=== PATIENT | female | born 1940 | race Caucasian/White ===

== ENCOUNTER 2018-01-18 09:34 | Emergency (ER) | payer OTHER, MEDICAID ==
[~2018-01-18] VITALS: Ht 152.4 cm; Wt 63.1 kg
[~2018-01-18 09:34] MED LIST: ALPR1TAB2 PO; COZ50 PO; METF500T PO; METO50TE2 PO; ROSU5TAB PO
[2018-01-18 09:35] VITALS: BP 145/79
[2018-01-18] MEDS ORDERED: KETOROLAC 30 MG/ML VIAL IM ONE (10:05)
[2018-01-18] MEDS ORDERED: DEXAMETHASONE 10 MG/ML VIAL IM ONE (10:05)
[2018-01-18 10:47] LABS: BILIRUBIN,URINE NEGATIVE (NEGATIVE); BLOOD, URINE NEGATIVE (NEGATIVE); COLOR,URINE YELLOW (YELLOW); LEUKOCYTE ESTERASE ,URINE NEGATIVE (NEGATIVE); NITRITE, URINE NEGATIVE (NEGATIVE); UGLUCOSE NEGATIVE (NEGATIVE)
[2018-01-18 10:50] VITALS: BP 145/79
[2018-01-18 10:51] LABS: APPEARANCE,URINE SLIGHTLY HAZY (CLEAR)
[2018-01-18 10:52] LABS: HYALINE CASTS, URINE 0-10 /LPF (None Seen); RBC,URINE 0-5 (RARE) /HPF (0-5); WBC,URINE 0-5 (RARE) /HPF (0-5)
== END 2018-01-18 10:50 | disposition home or self-care (01) ==
LOC: MED 09:34
DX: M51.16 Intervertebral disc disorders with radiculopathy, lumbar region (principal); E11.9 Type 2 diabetes mellitus without complications; I10 Essential (primary) hypertension; Z88.5 Allergy status to narcotic agent; Z79.899 Other long term (current) drug therapy; Z79.84 Long term (current) use of oral hypoglycemic drugs
CPT/HCPCS: 72100; 81001; 96372; 99285; J1100; J1885

== ENCOUNTER 2018-02-05 06:52 | Emergency (ER) | payer OTHER, MEDICAID ==
[~2018-02-05] VITALS: Ht 152.4 cm; Wt 63.0 kg
[2018-02-05 07:07] VITALS: BP 126/70
[2018-02-05] MEDS ORDERED: KETOROLAC 60 MG/2 ML VIAL IM ONE (08:15)
[2018-02-05] MEDS ORDERED: DEXAMETHASONE 4 MG/ML VIAL IM ONE (08:15)
[2018-02-05 08:51] VITALS: BP 146/73
== END 2018-02-05 08:51 | disposition home or self-care (01) ==
LOC: MED 06:52
DX: S86.812A Strain of other muscle(s) and tendon(s) at lower leg level, left leg, initial encounter (principal); G89.29 Other chronic pain; M54.5 Low back pain; E11.9 Type 2 diabetes mellitus without complications; E07.9 Disorder of thyroid, unspecified; E78.5 Hyperlipidemia, unspecified; Z88.5 Allergy status to narcotic agent; Z79.84 Long term (current) use of oral hypoglycemic drugs; Z79.899 Other long term (current) drug therapy; W19.XXXA Unspecified fall, initial encounter; Y93.89 Activity, other specified; Y92.89 Other specified places as the place of occurrence of the external cause; Y99.8 Other external cause status
CPT/HCPCS: 72100; 73562; 96372; 99284; J1100; J1885; Q0092

== ENCOUNTER 2020-01-26 14:49 | Emergency (ER) | payer OTHER, MEDICAID ==
[~2020-01-26] VITALS: Ht 157.5 cm; Wt 63.5 kg
[~2020-01-26 14:49] MED LIST changes: -COZ50 PO; +LOSA50TA57 PO
[2020-01-26 14:54] VITALS: BP 167/73
[2020-01-26 16:39] VITALS: BP 167/73
== END 2020-01-26 16:40 | disposition home or self-care (01) ==
LOC: MED 14:49
DX: S46.911A Strain of unspecified muscle, fascia and tendon at shoulder and upper arm level, right arm, initial encounter (principal); R51.9 Headache, unspecified; E11.9 Type 2 diabetes mellitus without complications; E07.9 Disorder of thyroid, unspecified; I10 Essential (primary) hypertension; Z88.5 Allergy status to narcotic agent; Z79.899 Other long term (current) drug therapy; X58.XXXA Exposure to other specified factors, initial encounter; Y93.89 Activity, other specified; Y92.89 Other specified places as the place of occurrence of the external cause; Y99.8 Other external cause status
CPT/HCPCS: 70450; 82948; 99284

== ENCOUNTER 2020-12-10 14:36 | Emergency (ER) | payer OTHER, MEDICAID ==
[~2020-12-10] VITALS: Ht 157.5 cm; Wt 59.0 kg
[2020-12-10 14:39] VITALS: BP 205/97
--- NOTE | 2020-12-10 14:43 | NUR ---
BIBA TO BED 4.
--- NOTE | 2020-12-10 14:50 | NUR ---
80 Y/O FEMALE BIBA FROM [facility] C/O GENERALIZED PAIN 8/10 DESCRIBES ACHING S/P FALL WHILE SHOPPING. PER EMS PT HIT HEAD, DENIES LOC, DENIES N/V, DENIES FEVER/CHILLS. BLOOD SUGAR 215. PT IS NOT ON BLOOD THINNERS. PMH:HTN, DM, HYPOTHYROID ALLERGIES: CODEINE
--- NOTE | 2020-12-10 14:51 | NUR ---
PER DR. KAISER PT TO BE PLACED IN C-COLLAR.
--- NOTE | 2020-12-10 14:53 | NUR ---
[facility]
[2020-12-10] MEDS ORDERED: ACETAMINOPHEN 325 MG TAB PO ONE (15:00)
--- NOTE | 2020-12-10 15:19 | NUR ---
PT TAKEN TO ER BED 4 [facility].
--- NOTE | 2020-12-10 16:31 | NUR ---
PER DR. KAISER, PT CLEARED FROM C-COLLAR.
--- NOTE | 2020-12-10 16:37 | NUR ---
PT ASSISTED TO BEDPAN, 50ML OF CLEAR YELLOW URINE SEDIMENT NOTED.
[2020-12-10] MEDS ORDERED: ACET-10509 PO (16:40)
--- NOTE | 2020-12-10 16:45 | NUR ---
PT RESTING, VISIBLE EQUAL RISE AND FALL OF CHEST, VSS, WILL CONTINUE TO MONITOR.
[2020-12-10 18:08] VITALS: BP 154/78
--- NOTE | 2020-12-10 18:08 | NUR ---
Patient discharged with v/s stable. Written and verbal after care instructions given and explained. Patient verbalized understanding. Ambulatory with steady gait. All questions addressed prior to discharge. Advised to follow up with PMD.
== END 2020-12-10 18:08 | disposition home or self-care (01) ==
LOC: MED 14:36
DX: S09.90XA Unspecified injury of head, initial encounter (principal); M54.2 Cervicalgia; M25.551 Pain in right hip; M25.552 Pain in left hip; M25.572 Pain in left ankle and joints of left foot; M25.561 Pain in right knee; E11.9 Type 2 diabetes mellitus without complications; I10 Essential (primary) hypertension; E07.9 Disorder of thyroid, unspecified; Z90.49 Acquired absence of other specified parts of digestive tract; Z88.5 Allergy status to narcotic agent; Z79.899 Other long term (current) drug therapy; Z79.84 Long term (current) use of oral hypoglycemic drugs; W51.XXXA Accidental striking against or bumped into by another person, initial encounter; Y93.89 Activity, other specified; Y92.89 Other specified places as the place of occurrence of the external cause; Y99.8 Other external cause status
CPT/HCPCS: 70450; 72072; 72100; 72125; 73030; 73562; 73610; 99285

== ENCOUNTER 2021-05-27 18:52 | Emergency (ER) | payer OTHER, MEDICAID ==
[~2021-05-27] VITALS: Ht 154.9 cm; Wt 57.6 kg
[~2021-05-27 18:52] MED LIST changes: +ACET-10509 PO
[2021-05-27 19:07] VITALS: BP 180/92
--- NOTE | 2021-05-27 19:32 | NUR ---
Dr. Rees examining patient.
[2021-05-27] MEDS ORDERED: MORPHINE SULFATE 4 MG/ML SYR IVP ONE (19:35)
--- NOTE | 2021-05-27 19:35 | NUR ---
80 Y/O FEMALE BIB FAMILY C/O BODY PAIN 10/10 S/P FALL [id number] AGO. +HEAD INJURY, DENIES LOC. DENIES N/V. DENIES FEVER/CHILLS. APPROX 1 CMLACERATION NOTED RIGHT EYEBROW WITH HEMATOMA PMH: DM, HTN, HLD, HYPOTHYROIDISM ALLERGIES: CODEINE
--- NOTE | 2021-05-27 19:55 | NUR ---
TO CT VIA [facility]
--- NOTE | 2021-05-27 20:31 | NUR ---
PT RETURN FROM RADIOLOGY
--- NOTE | 2021-05-27 20:35 | NUR ---
ASSISTED ONTO BEDPAN
--- NOTE | 2021-05-27 21:12 | NUR ---
VOIDED LARGE AMOUNT CLEAR URINE ON BEDPAN
--- NOTE | 2021-05-27 22:00 | NUR ---
PTS DAUGHTER : SUSAN TREVIÑO : [phone]
[2021-05-27] MEDS ORDERED: HYDR-5080 PO ×2 (23:27→23:28)
[2021-05-27 23:54] VITALS: BP 180/92
== END 2021-05-27 23:45 | disposition home or self-care (01) ==
LOC: MED 18:52
DX: S42.291A Other displaced fracture of upper end of right humerus, initial encounter for closed fracture (principal); S00.83XA Contusion of other part of head, initial encounter; H92.01 Otalgia, right ear; W18.39XA Other fall on same level, initial encounter; Y93.89 Activity, other specified; Y92.89 Other specified places as the place of occurrence of the external cause; Y99.8 Other external cause status
CPT/HCPCS: 70450; 70486; 71045; 72125; 73030; 73060; 73080; 73562; 90471; 90715; 96374; 99285; J2270

== ENCOUNTER 2021-11-07 09:08 | Emergency (ER) | payer OTHER, MEDICAID ==
[~2021-11-07] VITALS: Ht 149.9 cm; Wt 50.6 kg
[~2021-11-07 09:08] MED LIST changes: +HYDR-5080 PO; +METF-346 PO; -METF500T PO
[2021-11-07 09:23] VITALS: BP 166/71
--- NOTE | 2021-11-07 09:30 | NUR ---
PT AMB TO BED 9.
--- NOTE | 2021-11-07 09:45 | NUR ---
DR MANCINI AT BEDSIDE FOR EVALUATION
--- NOTE | 2021-11-07 09:50 | NUR ---
81 Y/O FEMALE C/O LEFT EAR DISCOMFORT X LAST NIGHT. STATES SHE PLACED EAR PLUG IN EAR WHILE SHOWERING THEN COULD NOT FIND, WORRIED IT MAY BE STUCK IN EAR. DENIES DIZZINESS, HEADACHE, BLURRED VISION, FEVER, CHILLS. NO VISIBLE SIGNS OF OBJECT IN EAR NOTED. ALL: CODEINE PMH: HTN, DM, ARTHRITIS
[2021-11-07] MEDS ORDERED: ACET-10509 PO (09:55)
[2021-11-07] MEDS ORDERED: AMOX1TAB8 PO (09:55)
[2021-11-07] MEDS ORDERED: OFLO5SOL27 LEFT EAR (09:55)
[2021-11-07 10:10] VITALS: BP 166/71
--- NOTE | 2021-11-07 10:10 | NUR ---
Patient discharged with v/s stable. Written and verbal after care instructions given and explained. Patient alert, oriented and verbalized understanding of instructions. Ambulatory with steady gait. All questions addressed prior to discharge. ID band removed. Patient advised to follow up with PMD. Rx of Tylenol, Ofloxacin, Augmentin given. Patient educated on indication of medication including possible reaction and side effects. Opportunity to ask questions provided and answered.
== END 2021-11-07 10:10 | disposition home or self-care (01) ==
LOC: MED 09:08
DX: H66.92 Otitis media, unspecified, left ear (principal); H73.92 Unspecified disorder of tympanic membrane, left ear; E11.9 Type 2 diabetes mellitus without complications; I10 Essential (primary) hypertension; Z79.84 Long term (current) use of oral hypoglycemic drugs; Z79.899 Other long term (current) drug therapy; Z88.5 Allergy status to narcotic agent
CPT/HCPCS: 99283

== ENCOUNTER 2021-11-13 10:45 | Emergency (ER) | payer OTHER, MEDICAID ==
[~2021-11-13] VITALS: Ht 148.6 cm; Wt 50.0 kg
[~2021-11-13 10:45] MED LIST changes: +AMOX1TAB8 PO; +OFLO5SOL27 LEFT EAR
[2021-11-13 11:02] VITALS: BP 164/89
--- NOTE | 2021-11-13 11:10 | NUR ---
PT AMBULATED WITH WALKER TO ER BED 6
--- NOTE | 2021-11-13 13:20 | NUR ---
81YO FEMALE PT C/O DIZZINESS ALONG W/ ACHING 10 ARTURO EAR PAIN X1 WEEK. PT STATES INITIAL PAIN STARTED AFTER CLEANING EARS W/ QTIP. REPORTS RINGING AND DECREASE IN HEARING ARTURO EARS. PT COMPLIANT W/ RX AMOXICILLIN AND OFLAXACIN GIVEN LAST WEEK WHEN SEEN , MILD RELIEF AFTER TAKING ADVIL. PT AMBULATORY USING WALKER . DENIES N/V/D OR CHEST PAIN. EAR PRESENTS REDDENED , NO DISCHARGE NOTED. PT AAOX4, NO VISIBLE DISTRESS. RSPIRATIONS EVEN AND UNLABORED. BED AT LOWEST POSITION, BED RAILS UP X2. HX: DIABETES, HTN ,THYROID DISEASE ALLERGIES : CODEINE
[2021-11-13] MEDS ORDERED: MECL-303 PO (13:42)
[2021-11-13 14:08] VITALS: BP 150/77
--- NOTE | 2021-11-13 14:08 | NUR ---
Patient discharged with v/s stable. Written and verbal after care instructions ABOUT OTITIS MEDIA AND VERTIGO given and explained. Patient alert, oriented and verbalized understanding of instructions. Ambulatory with steady gait. All questions addressed prior to discharge. ID band removed. Patient advised to follow up with PMD. Rx of ANTIVERT given. Patient educated on indication of medication including possible reaction and side effects. Opportunity to ask questions provided and answered.
== END 2021-11-13 14:08 | disposition home or self-care (01) ==
LOC: MED 10:45
DX: H61.22 Impacted cerumen, left ear (principal); E11.9 Type 2 diabetes mellitus without complications; I10 Essential (primary) hypertension; E03.9 Hypothyroidism, unspecified; M19.90 Unspecified osteoarthritis, unspecified site; Z79.4 Long term (current) use of insulin; Z79.899 Other long term (current) drug therapy; Z88.5 Allergy status to narcotic agent
CPT/HCPCS: 99282

== ENCOUNTER 2022-01-29 14:48 | Emergency (ER) | payer OTHER, MEDICAID ==
[~2022-01-29] VITALS: Ht 152.4 cm; Wt 53.5 kg
[~2022-01-29 14:48] MED LIST changes: +MECL-303 PO
[2022-01-29 15:56] VITALS: BP 197/79
[2022-01-29] MEDS ORDERED: CLOT10SO5 TP (18:10)
--- NOTE | 2022-01-29 18:49 | NUR ---
no nursing interventions required.
[2022-01-29 18:50] VITALS: BP 197/79
--- NOTE | 2022-01-29 18:50 | NUR ---
Patient discharged with v/s stable. Written and verbal after care instructions given and explained. Patient alert, oriented and verbalized understanding of instructions. Ambulatory with steady gait. All questions addressed prior to discharge. ID band removed. Patient advised to follow up with PMD. Rx of clotrimazole given. Patient educated on indication of medication including possible reaction and side effects. Opportunity to ask questions provided and answered.
== END 2022-01-29 18:50 | disposition home or self-care (01) ==
LOC: MED 14:48
DX: H92.02 Otalgia, left ear (principal); E11.9 Type 2 diabetes mellitus without complications; I10 Essential (primary) hypertension; E07.9 Disorder of thyroid, unspecified; Z79.84 Long term (current) use of oral hypoglycemic drugs; Z79.899 Other long term (current) drug therapy; Z88.5 Allergy status to narcotic agent
CPT/HCPCS: 99282

== ENCOUNTER 2022-02-22 09:54 | Emergency (ER) | payer OTHER, MEDICAID ==
[~2022-02-22] VITALS: Ht 154.9 cm; Wt 52.2 kg
[~2022-02-22 09:54] MED LIST changes: +CLOT10SO5 TP
[2022-02-22 10:03] VITALS: BP 152/79
--- NOTE | 2022-02-22 10:13 | NUR ---
Pt ambulated to lobby with walker.
[2022-02-22] MEDS ORDERED: ACET-10509 PO (11:47)
[2022-02-22] MEDS ORDERED: CLOT10SO5 TP (12:39)
[2022-02-22 13:05] VITALS: BP 189/87
--- NOTE | 2022-02-22 13:05 | NUR ---
Patient discharged. Written and verbal after care instructions ABOUT EARACHE given and explained. Patient alert, oriented and verbalized understanding of instructions. Ambulatory with steady gait. All questions addressed prior to discharge. ID band removed. Patient advised to follow up with PMD. Rx of TYLENOL EXTRA STRENGTH AND CLOTRIMAZOLE given. Patient educated on indication of medication including possible reaction and side effects. Opportunity to ask questions provided and answered.
--- NOTE | 2022-02-22 13:24 | NUR ---
PT AND DAUGHTER REQUESTING UBER, UBER PROVIDED HOME.
== END 2022-02-22 13:05 | disposition home or self-care (01) ==
LOC: MED 09:54
DX: H92.03 Otalgia, bilateral (principal); E03.9 Hypothyroidism, unspecified; I10 Essential (primary) hypertension; E11.9 Type 2 diabetes mellitus without complications; Z79.4 Long term (current) use of insulin; Z79.899 Other long term (current) drug therapy
CPT/HCPCS: 99282

== ENCOUNTER 2022-06-06 16:42 | Emergency (ER) | payer OTHER, MEDICAID ==
[~2022-06-06] VITALS: Ht 149.9 cm; Wt 55.1 kg
[2022-06-06 17:16] VITALS: BP 185/76
[2022-06-06] MEDS ORDERED: AMOX500C25 PO (19:24)
[2022-06-06 19:46] VITALS: BP 185/76
--- NOTE | 2022-06-06 19:46 | NUR ---
Patient discharged with v/s stable. Written and verbal after care instructions given and explained. Patient alert, oriented and verbalized understanding of instructions. Wheel Chair Assisted with by caregiver. All questions addressed prior to discharge. ID band removed. Patient advised to follow up with PMD. Rx of AMOXICILLIN given. Patient educated on indication of medication including possible reaction and side effects. Opportunity to ask questions provided and answered.
== END 2022-06-06 19:46 | disposition home or self-care (01) ==
LOC: MED 16:42
DX: H92.02 Otalgia, left ear (principal); E11.9 Type 2 diabetes mellitus without complications; I10 Essential (primary) hypertension; E03.9 Hypothyroidism, unspecified; Z88.5 Allergy status to narcotic agent; Z79.4 Long term (current) use of insulin; Z79.899 Other long term (current) drug therapy
CPT/HCPCS: 99283

== ENCOUNTER 2022-09-03 09:36 | Emergency (ER) | payer OTHER, MEDICAID ==
[~2022-09-03] VITALS: Ht 157.5 cm; Wt 54.0 kg
[~2022-09-03 09:36] MED LIST changes: +AMOX500C25 PO
[2022-09-03 09:37] VITALS: BP 170/81
--- NOTE | 2022-09-03 10:13 | NUR ---
82 Y/O FEMALE BIB [facility] C/O RIGHT SHOULDER PAIN RADIATING TO THE RIGHT ARM AND INTERMITTENT RIGHT HAND NUMBNESSX1 WEEK, EQUAL STRENGTHS BILATERALLY. DENIES ANY FALLS RECENTLY. PMH:hx: dm htn, thyroid, high cholesterol , arthritis ALLERGY: CODEINE
--- NOTE | 2022-09-03 10:18 | NUR ---
DR LOZA AT BEDSIDE FOR EVAL
[2022-09-03] MEDS ORDERED: ONDANSETRON 4 MG ODT PO ONE (10:25)
[2022-09-03] MEDS ORDERED: MORPHINE SULFATE 4 MG/ML SYR IM ONE (10:25)
[2022-09-03] MEDS ORDERED: ACETAMINOPHEN EXTRA STRENGTH 500 MG TAB PO ONE (10:25)
[2022-09-03] MEDS ORDERED: CYCLOBENZAPRINE 10 MG TAB PO ONE (10:25)
--- NOTE | 2022-09-03 10:39 | NUR ---
PT GIVEN A CUP OF WATER, TOLERATED WELL
[2022-09-03] MEDS ORDERED: diphenhydrAMINE 50 MG/ML VIAL IM ONE (11:10)
[2022-09-03] MEDS ORDERED: FAMOTIDINE 20 MG TAB PO ONE (11:10)
[2022-09-03] MEDS ORDERED: methylPREDNISolone SS 40 MG in WATER STERILE 1 ML IM ONE (11:45)
[2022-09-03] MEDS ORDERED: WATER STERILE 10 ML MC ONE (11:49)
[2022-09-03] MEDS ORDERED: methylPREDNISolone SS 40 MG/ML VIAL ONE (11:49)
[2022-09-03 11:53] VITALS: BP 182/72
--- NOTE | 2022-09-03 12:01 | NUR ---
AMBULATED TO BATHROOM WITH ASSISTANCE
[2022-09-03] MEDS ORDERED: IBUP-2213 PO (13:08)
[2022-09-03] MEDS ORDERED: BACL10TA4 PO (13:08)
[2022-09-03] MEDS ORDERED: ACET-2619 PO (13:08)
[2022-09-03] MEDS ORDERED: DICL20GE TP (13:08)
[2022-09-03] MEDS ORDERED: EPIN0.1510 IM (13:10)
[2022-09-03] MEDS ORDERED: DIPH25TA53 PO (13:10)
[2022-09-03] MEDS ORDERED: PRED20TA5 PO (13:11)
--- NOTE | 2022-09-03 13:33 | NUR ---
Patient discharged with v/s stable. Written and verbal after care instructions given and explained. Patient alert, oriented and verbalized understanding of instructions. Ambulatory with steady gait. All questions addressed prior to discharge. ID band removed. Patient advised to follow up with PMD. Rx of TYLENOL, MTORIN, BACLOFEN, BENADRYL, EPINEPHRINE, DELTASONE, VOLTAREN given. Patient educated on indication of medication including possible reaction and side effects. Opportunity to ask questions provided and answered.
--- NOTE | 2022-09-03 14:30 | NUR ---
DENZEL ONEAL PATIENT PICKED UP BY MAGALY SIMON
== END 2022-09-03 13:32 | disposition home or self-care (01) ==
LOC: MED 09:36
DX: M25.511 Pain in right shoulder (principal); M54.12 Radiculopathy, cervical region; E11.9 Type 2 diabetes mellitus without complications; I10 Essential (primary) hypertension; E03.9 Hypothyroidism, unspecified; E78.5 Hyperlipidemia, unspecified; Z88.5 Allergy status to narcotic agent; Z79.4 Long term (current) use of insulin; Z79.899 Other long term (current) drug therapy
CPT/HCPCS: 93005; 96372; 99284; J1200; J2270; J2920; Q0162

== ENCOUNTER 2022-09-06 17:45 | Emergency (ER) | payer OTHER, MEDICAID ==
[~2022-09-06] VITALS: Ht 144.8 cm; Wt 56.2 kg
[~2022-09-06 17:45] MED LIST changes: +ACET-2619 PO; +BACL10TA4 PO; +DICL20GE TP; +DIPH25TA53 PO; +EPIN0.1510 IM; +IBUP-2213 PO; +PRED20TA5 PO
[2022-09-06 17:53] VITALS: BP 169/65
--- NOTE | 2022-09-06 18:01 | NUR ---
pt ambulatory to [facility], accompanied by daughter.
--- NOTE | 2022-09-06 18:50 | NUR ---
PT AMB TO BED 9
--- NOTE | 2022-09-06 19:22 | NUR ---
REPORT GIVEN TO LISA HICKS. TRANSFER OF CARE AT THIS TIME
[2022-09-06 20:00] VITALS: BP 145/50
--- NOTE | 2022-09-06 20:13 | NUR ---
Patient being evaluated by RICKEY at bedside.
[2022-09-06] MEDS ORDERED: CIPR500T4 PO (20:24)
--- NOTE | 2022-09-06 21:03 | NUR ---
Patient discharged with v/s stable. Written and verbal after care instructions given and explained. Patient alert, oriented and verbalized understanding of instructions. Ambulatory with walker. All questions addressed prior to discharge. ID band removed. Patient advised to follow up with PMD. Rx of Cipro given. Patient educated on indication of medication including possible reaction and side effects. Opportunity to ask questions provided and answered. Addendum: 09/06/22 at 2105 by [facility] Left after verbal instructions by Dr. Becerra.
== END 2022-09-06 21:03 | disposition home or self-care (01) ==
LOC: MED 17:45
DX: R30.0 Dysuria (principal); I10 Essential (primary) hypertension; E11.9 Type 2 diabetes mellitus without complications; E03.9 Hypothyroidism, unspecified; Z79.4 Long term (current) use of insulin; Z79.899 Other long term (current) drug therapy; Z88.5 Allergy status to narcotic agent; Z90.49 Acquired absence of other specified parts of digestive tract; Z90.710 Acquired absence of both cervix and uterus
CPT/HCPCS: 81002; 99283

== ENCOUNTER 2022-10-16 01:35 | Emergency (ER) | payer OTHER, MEDICAID ==
[~2022-10-16] VITALS: Ht 152.4 cm; Wt 54.6 kg
[~2022-10-16 01:35] MED LIST changes: +CIPR500T4 PO; +CIPR7.5S OT; +DICL100G5 TP; +NAPR-1704 PO
--- NOTE | 2022-10-16 01:37 | NUR ---
PT BIBA TO BED 7
--- NOTE | 2022-10-16 01:38 | NUR ---
Patient being evaluated by physician at bedside.
[2022-10-16] MEDS ORDERED: LORazepam 0.5 MG TAB PO ONE (01:45)
[2022-10-16] MEDS ORDERED: IBUPROFEN 400 MG TAB PO ONE (01:45)
[2022-10-16 01:47] VITALS: BP 148/73; PULSE 61; RESP 12; TEMP 98.1; O2SAT 98
--- NOTE | 2022-10-16 01:48 | NUR ---
Blood for labwork drawn. Patient tolerated.
--- NOTE | 2022-10-16 01:49 | NUR ---
EKG performed at BS. Physician given copy of EKG for review.
--- NOTE | 2022-10-16 01:53 | NUR ---
X-Ray at bedside.
--- NOTE | 2022-10-16 02:05 | NUR ---
82 YO F BIBA FROM HOME WITH C/C OF 10/10 GENERALZIED BODY ACHES, REPORTS NUMBNESS RAD FROM RT SHOULER TO FINGER TIPS. DENIES CHEST PAIN, DENIES SOB. PT REPORTS BILAT EAR ACHES. STATES SHE IS ANXIOUS. HX:DM, HYPOTHYRIOD ALLERGY:CODEINE, MORPHINE
[2022-10-16 02:13] LABS: APPEARANCE,URINE CLEAR (CLEAR); BILIRUBIN,URINE NEGATIVE (NEGATIVE); BLOOD, URINE TRACE-I (NEGATIVE); COLOR,URINE YELLOW (YELLOW); LEUKOCYTE ESTERASE ,URINE NEGATIVE (NEGATIVE); NITRITE, URINE NEGATIVE (NEGATIVE); UGLUCOSE NEGATIVE (NEGATIVE)
[2022-10-16 02:15] LABS: BASOPHILS % (AUTO) 0.4 % (0.0-2.0); EOSINOPHILS # (AUTO) 0.1 K/uL (0-0.4); EOSINOPHILS % (AUTO) 0.7 % (0.0-4.0); HEMATOCRIT 27.5 % (36-48); HEMOGLOBIN 9.7 g/dL (12.0-16.0); LYMPHOCYTES # (AUTO) 3.5 K/uL (2.5-16.5); LYMPHOCYTES % (AUTO) 34.2 % (20.5-51.1); MEAN CORPUSCULAR HEMOGLOBIN 31 pg (27-31); MEAN CORPUSCULAR HGB CONC 35 g/dL (33-37); MEAN CORPUSCULAR VOLUME 87.5 fL (80-94); MONOCYTES # (AUTO) 0.7 K/uL (0.8-1.0); MONOCYTES % (AUTO) 7.3 % (1.7-9.3); NEUTROPHILS # (AUTO) 5.9 K/uL (1.8-7.7); NEUTROPHILS % (AUTO) 57.4 % (42.2-75.2); PLATELET COUNT (AUTO) 279 K/uL (140-450); RED BLOOD CELL COUNT(AUTO) 3.14 MIL/uL (4.20-5.40); WHITE BLOOD COUNT (AUTO) 10.2 K/uL (4.8-10.8)
[2022-10-16 02:17] LABS: ALBUMIN 3.6 g/dL (3.4-5.0); ANION GAP 10.6 (8-16); ASPARTATE AMINOTRANSFERASE 17 U/L (15-37); CARBON DIOXIDE 27.5 mmol/L (21-32); CHLORIDE 98 mmol/L (98-107); CREATININE 0.6 mg/dL (0.6-1.3); GLUCOSE 139 mg/dL (74-106); POTASSIUM 4.1 mmol/L (3.5-5.1); SODIUM SERUM 132 mmol/L (136-145); TOTAL BILIRUBIN 0.4 mg/dL (0.0-1.0); UREA NITROGEN, BLOOD 20 mg/dL (7-18)
[2022-10-16 02:18] VITALS: BP 154/61; PULSE 66; RESP 16; TEMP 98.3; O2SAT 99
[2022-10-16 02:23] LABS: RBC,URINE 0-5 /HPF (0-5)
--- NOTE | 2022-10-16 02:24 | NUR ---
82 YO F BIBA from home C/C gen body pain 12/31 with numbing rad to rt shoulder and fingertips. pt stated bilateral earaches and feels anxious xtoday. pt ambulatory, skin intact, A&Ox4. pmh- arthritis, DM, HTN, hypothyroid allergies- codeine, morephine
--- NOTE | 2022-10-16 02:47 | NUR ---
PT TAKEN FOR CT
--- NOTE | 2022-10-16 02:54 | NUR ---
PT BACK FROM CT VIA [facility]
--- NOTE | 2022-10-16 03:08 | NUR ---
pt ambulated to restroom
--- NOTE | 2022-10-16 03:12 | NUR ---
pt back from restroom and on night monitor. call light within reach
[2022-10-16] MEDS ORDERED: ACET-10509 PO (03:43)
[2022-10-16] MEDS ORDERED: CYCL-711 PO (03:43)
--- NOTE | 2022-10-16 04:55 | NUR ---
Patient discharged with v/s stable. Written and verbal after care instructions given and explained. Patient alert, oriented and verbalized understanding of instructions. Ambulatory with to home. All questions addressed prior to discharge. ID band removed. Patient advised to follow up with PMD. Rx of flexeril and acetaminophen given. Opportunity to ask questions provided and answered.
== END 2022-10-16 04:55 | disposition home or self-care (01) ==
LOC: MED 01:35
DX: M47.22 Other spondylosis with radiculopathy, cervical region (principal); G47.00 Insomnia, unspecified; M79.18 Myalgia, other site; Z20.822 Contact with and (suspected) exposure to COVID-19; E11.9 Type 2 diabetes mellitus without complications; I10 Essential (primary) hypertension; E03.9 Hypothyroidism, unspecified; Z79.899 Other long term (current) drug therapy; Z79.2 Long term (current) use of antibiotics; Z79.1 Long term (current) use of non-steroidal anti-inflammatories (NSAID); Z88.5 Allergy status to narcotic agent
CPT/HCPCS: 36415; 70450; 71045; 80053; 81001; 82550; 84484; 85025; 87426; 93005; 99285; Q0092

== ENCOUNTER 2022-11-03 01:19 | Emergency (ER) | payer OTHER, MEDICAID ==
[~2022-11-03] VITALS: Ht 157.5 cm; Wt 54.4 kg
[2022-11-03 01:19] VITALS: BP 150/75; PULSE 75; RESP 16; TEMP 98; O2SAT 98
[~2022-11-03 01:19] MED LIST changes: +CYCL-711 PO
[2022-11-03 01:30] VITALS: BP 150/75; PULSE 75; RESP 16; TEMP 98; O2SAT 98
== END 2022-11-03 04:20 | disposition left against medical advice (07) ==
LOC: MED 01:19
DX: H92.02 Otalgia, left ear (principal); Z53.21 Procedure and treatment not carried out due to patient leaving prior to being seen by health care provider
CPT/HCPCS: 99281

== ENCOUNTER 2022-11-16 12:32 | Emergency (ER) | payer OTHER, MEDICAID ==
[~2022-11-16] VITALS: Ht 152.4 cm; Wt 53.1 kg
[2022-11-16 12:42] VITALS: BP 155/73; PULSE 76; RESP 18; TEMP 97.8; O2SAT 97
[2022-11-16] MEDS ORDERED: ACETAMINOPHEN 325 MG TAB PO ONE (13:15)
[2022-11-16] MEDS ORDERED: methocarbamoL 500 MG TAB PO ONE (13:15)
[2022-11-16] MEDS ORDERED: IBUPROFEN 600 MG TAB PO ONE (13:15)
[2022-11-16] MEDS ORDERED: NAPR-1704 PO (15:35)
[2022-11-16] MEDS ORDERED: LIDO1ADH47 TP (15:35)
== END 2022-11-16 15:43 | disposition home or self-care (01) ==
LOC: MED 12:32
DX: M54.50 Low back pain, unspecified (principal); E11.9 Type 2 diabetes mellitus without complications; I10 Essential (primary) hypertension; E07.9 Disorder of thyroid, unspecified; F41.9 Anxiety disorder, unspecified; Z88.5 Allergy status to narcotic agent; Z79.899 Other long term (current) drug therapy; Z90.49 Acquired absence of other specified parts of digestive tract; Z90.710 Acquired absence of both cervix and uterus; Z79.84 Long term (current) use of oral hypoglycemic drugs; W19.XXXA Unspecified fall, initial encounter; Y93.89 Activity, other specified; Y92.89 Other specified places as the place of occurrence of the external cause; Y99.8 Other external cause status
CPT/HCPCS: 72110; 72220; 99284

== ENCOUNTER 2023-01-15 14:30 | Emergency (ER) | payer OTHER, MEDICAID ==
[~2023-01-15] VITALS: Ht 160 cm; Wt 53.1 kg
[~2023-01-15 14:30] MED LIST changes: +DICL100G32 TP; -DICL100G5 TP; +LIDO1ADH47 TP
[2023-01-15 14:50] VITALS: BP 170/79; PULSE 60; RESP 18; TEMP 97.7; O2SAT 100
[2023-01-15] MEDS ORDERED: ACET-10509 PO (16:27)
[2023-01-15] MEDS ORDERED: ACETAMINOPHEN EXTRA STRENGTH 500 MG TAB PO ONE (16:30)
[2023-01-15 16:55] VITALS: BP 142/78; PULSE 60; RESP 18; TEMP 98; O2SAT 100
== END 2023-01-15 16:55 | disposition home or self-care (01) ==
LOC: MED 14:30
DX: H92.02 Otalgia, left ear (principal); E11.9 Type 2 diabetes mellitus without complications; I10 Essential (primary) hypertension; E03.9 Hypothyroidism, unspecified; Z79.4 Long term (current) use of insulin; Z79.899 Other long term (current) drug therapy; Z88.5 Allergy status to narcotic agent
CPT/HCPCS: 99283

== ENCOUNTER 2023-06-16 04:20 | Emergency (ER) | payer OTHER, MEDICAID ==
[~2023-06-16] VITALS: Ht 160 cm; Wt 51.7 kg
[2023-06-16 04:28] VITALS: BP 168/68; PULSE 63; RESP 18; TEMP 97.8; O2SAT 99
[2023-06-16 04:56] VITALS: O2SAT 98
[2023-06-16] MEDS ORDERED: NAPR-54 PO (05:26)
[2023-06-16] MEDS: IBUPROFEN 600 MG TAB PO ONE (06:11)
[2023-06-16 06:53] LABS: BASOPHILS % (AUTO) 0.6 % (0.0-2.0); EOSINOPHILS # (AUTO) 0.2 K/uL (0-0.4); EOSINOPHILS % (AUTO) 2.5 % (0.0-4.0); HEMATOCRIT 25.3 % (36-48); HEMOGLOBIN 8.6 g/dL (12.0-16.0); LYMPHOCYTES # (AUTO) 2.4 K/uL (2.5-16.5); LYMPHOCYTES % (AUTO) 36.5 % (20.5-51.1); MEAN CORPUSCULAR HEMOGLOBIN 28 pg (27-31); MEAN CORPUSCULAR HGB CONC 34 g/dL (33-37); MEAN CORPUSCULAR VOLUME 81.8 fL (80-94); MONOCYTES # (AUTO) 0.4 K/uL (0.8-1.0); MONOCYTES % (AUTO) 6.7 % (1.7-9.3); NEUTROPHILS # (AUTO) 3.6 K/uL (1.8-7.7); NEUTROPHILS % (AUTO) 53.7 % (42.2-75.2); PLATELET COUNT (AUTO) 286 K/uL (140-450); RED CELL DISTRIBUTION WIDTH 14.7 % (11.6-13.7); WHITE BLOOD COUNT (AUTO) 6.7 K/uL (4.8-10.8)
[2023-06-16 06:56] LABS: APPEARANCE,URINE CLEAR (CLEAR); BILIRUBIN,URINE NEGATIVE (NEGATIVE); BLOOD, URINE NEGATIVE (NEGATIVE); COLOR,URINE YELLOW (YELLOW); LEUKOCYTE ESTERASE ,URINE TRACE (NEGATIVE); NITRITE, URINE NEGATIVE (NEGATIVE); PROTEIN,URINE NEGATIVE (NEGATIVE); UGLUCOSE NEGATIVE (NEGATIVE); UROBILINOGEN,URINE 0.2 EU/dL (0.2 - 1)
[2023-06-16 07:06] LABS: CALCIUM 9.9 mg/dL (8.5-10.1); CARBON DIOXIDE 30.1 mmol/L (21-32); CHLORIDE 100 mmol/L (98-107); CREATININE 0.6 mg/dL (0.6-1.3); GLUCOSE 134 mg/dL (74-106); POTASSIUM 4.1 mmol/L (3.5-5.1); SODIUM SERUM 137 mmol/L (136-145); UREA NITROGEN, BLOOD 16 mg/dL (7-18)
[2023-06-16 07:08] LABS: INR 0.98 (0.8-1.2); PROTHROMBIN TIME 10.3 secs (10.8-13.4)
[2023-06-16 07:12] LABS: BACTERIA,URINE FEW /HPF (None Seen); RBC,URINE 0-5 /HPF (0-5); SQUAMOUS EPITHELIAL CELL,UR 4-10 (MOD) /LPF (0-3 (FEW)); WBC,URINE 0-5 /HPF (0-5)
[2023-06-16 07:13] LABS: ALBUMIN 3.3 g/dL (3.4-5.0); BILIRUBIN,DIRECT 0.1 mg/dL (0.0-0.3); TOTAL BILIRUBIN 0.3 mg/dL (0.0-1.0); TOTAL PROTEIN, SERUM 6.5 g/dL (6.4-8.2)
[2023-06-16 07:16] LABS: LACTIC ACID 1.2 mmol/L (0.4-2.0)
[2023-06-16 07:22] VITALS: O2SAT 98
[2023-06-16 07:59] VITALS: BP 137/59; PULSE 61; RESP 18; TEMP 98; O2SAT 99
[2023-06-16] MEDS: ACETAMINOPHEN 325 MG TAB PO ONE (08:32)
== END 2023-06-16 09:01 | disposition home or self-care (01) ==
LOC: MED 04:20
DX: S01.01XA Laceration without foreign body of scalp, initial encounter (principal); D64.9 Anemia, unspecified; E11.9 Type 2 diabetes mellitus without complications; I10 Essential (primary) hypertension; E78.5 Hyperlipidemia, unspecified; Z86.39 Personal history of other endocrine, nutritional and metabolic disease; Z79.899 Other long term (current) drug therapy; Z88.5 Allergy status to narcotic agent; W06.XXXA Fall from bed, initial encounter; Y93.89 Activity, other specified; Y92.89 Other specified places as the place of occurrence of the external cause; Y99.8 Other external cause status
CPT/HCPCS: 12001; 36415; 70450; 71045; 80048; 80076; 81001; 83605; 85025; 85610; 85730; 87040; 87086; 93005; 99285; Q0092

== ENCOUNTER 2023-11-22 17:17 | Emergency (ER) | payer OTHER ==
[~2023-11-22] VITALS: Ht 139.7 cm; Wt 53.2 kg
[~2023-11-22 17:17] MED LIST changes: -ACET-10509 PO; +ACET500T99 PO; +NAPR-337 PO
[2023-11-22 17:21] VITALS: BP 180/63; PULSE 84; RESP 20; TEMP 99.8; O2SAT 96
[2023-11-22 17:51] VITALS: BP 171/77; PULSE 78; RESP 20; TEMP 99.7
[2023-11-22 17:52] VITALS: O2SAT 99
--- NOTE | 2023-11-22 17:55 | NUR ---
83F, PRESENTED TO ED AMBULATORY USING 4 WHEEL WALKER ACCOMPANIED BY HER SON CAROLYN. CC CHILLS, COUGH, HEADACHE AND BODY ACHES SINCE YESTERDAY. RESPIRATION EVEN AND UNLABORED. DIMINISHED BREATH SOUNDS. WEAK, DRY, NON-PRODUCTIVE COUGH. SATURATING WELL ON ROOM AIR. DENIES CHEST PAIN OR SOB. PT REPORTED SHE TOOK NYQUIL. PMHX: HYPERTENSION, DM SX HX: GALLSTONE REMOVAL, HYSTERECTOMY
[2023-11-22 18:01] LABS: APPEARANCE,URINE CLEAR (CLEAR); BILIRUBIN,URINE NEGATIVE (NEGATIVE); BLOOD, URINE NEGATIVE (NEGATIVE); COLOR,URINE YELLOW (YELLOW); LEUKOCYTE ESTERASE ,URINE NEGATIVE (NEGATIVE); NITRITE, URINE NEGATIVE (NEGATIVE); PROTEIN,URINE NEGATIVE (NEGATIVE); UGLUCOSE NEGATIVE (NEGATIVE); UROBILINOGEN,URINE 0.2 EU/dL (0.2 - 1)
[2023-11-22 18:22] LABS: FLU A ANTIGEN negative (NEGATIVE); FLU B ANTIGEN NEGATIVE (NEGATIVE)
--- NOTE | 2023-11-22 18:30 | NUR ---
X-Ray at bedside.
--- NOTE | 2023-11-22 18:34 | NUR ---
Patient being evaluated by physician at bedside.
--- NOTE | 2023-11-22 19:20 | NUR ---
Report given to KURT Espinoza for transfer of care.
[2023-11-22] MEDS: ACETAMINOPHEN EXTRA STRENGTH 500 MG TAB PO ONE (19:23)
[2023-11-22] MEDS ORDERED: DEXT118S25 PO (19:31)
[2023-11-22] MEDS ORDERED: ACET500T99 PO (19:31)
[2023-11-22] MEDS ORDERED: NIRM1TAB9 PO (19:31)
--- NOTE | 2023-11-22 19:34 | NUR ---
Patient was assisted to restroom with walker.
== END 2023-11-22 19:41 | disposition home or self-care (01) ==
LOC: MED 17:17
DX: U07.1 COVID-19 (principal); E11.9 Type 2 diabetes mellitus without complications; I10 Essential (primary) hypertension; Z79.899 Other long term (current) drug therapy; Z88.5 Allergy status to narcotic agent
CPT/HCPCS: 71045; 81003; 82948; 87426; 87804; 99284; Q0092